=== PATIENT | female | born 1995 | race Caucasian/White ===

== ENCOUNTER 2021-06-03 08:55 | Inpatient (IN) | payer MEDICAID ==
[~2021-06-03] VITALS: Ht 167.6 cm; Wt 102.2 kg
[2021-06-03] MEDS ORDERED: NEWBORN KIT ONE (09:14)
[2021-06-03] MEDS ORDERED: SODIUM CITRATE/CITRIC ACID 15 ML UDC ONE (09:14)
[2021-06-03] MEDS ORDERED: METOCLOPRAMIDE 5 MG/ML, 2ML ONE (09:14)
[2021-06-03] MEDS ORDERED: FENTANYL PF 100 MCG/2ML ONE ×2 (09:14→10:26)
[2021-06-03] MEDS ORDERED: METOCLOPRAMIDE 5 MG/ML, 2ML IV ONE (09:30)
[2021-06-03] MEDS ORDERED: SODIUM CITRATE/CITRIC ACID 30 ML UDC PO ONE (09:30)
[2021-06-03] MEDS ORDERED: LACTATED RINGERS 1,000 ML IVBOLUS ONE (09:30)
[2021-06-03] MEDS ORDERED: PLEASE ENTER HEIGHT AND WEIGHT MC SCH (09:30)
[2021-06-03] MEDS ORDERED: LACTATED RINGERS 1,000 ML IV SCH (09:30)
[2021-06-03] MEDS ORDERED: TERBUTALINE 1 MG/ML, 1ML ONE (09:34)
[2021-06-03 09:35] LABS: BASOPHILS % (AUTO) 1 % (0-1); EOSINOPHILS % (AUTO) 0 % (1-7); LYMPHOCYTES % (AUTO) 16 % (22-44); MEAN CORPUSCULAR HEMOGLOBIN 31.4 pg (27.0-34.8); MEAN CORPUSCULAR HGB CONC 33.5 g/dL (32.4-35.8); MEAN PLATELET VOLUME 11.3 fL (7.4-10.4); MONOCYTES % (AUTO) 5 % (2-9); NEUTROPHILS % (AUTO) 78 % (42-75); PLATELET COUNT 179 x10^3/uL (130-400); RED BLOOD COUNT 4.12 x10^6/uL (3.82-5.3); RED CELL DISTRIBUTION WIDTH 13.3 % (9.6-15.2)
[2021-06-03 09:44] LABS: ALANINE AMINOTRANSFERASE 23 U/L (12-78); ALBUMIN 2.6 g/dL (3.4-5.0); ANION GAP 9 mmol/L (5-15); CALCIUM 9.4 mg/dL (8.5-10.1); CHLORIDE 110 mmol/L (98-107); CREATININE 0.66 mg/dL (0.55-1.02)
[2021-06-03 09:46] LABS: ALKALINE PHOSPHATASE 211 U/L (45-117); BILIRUBIN,TOTAL 0.4 mg/dL (0.2-1.0); TOTAL PROTEIN 6.6 g/dL (6.4-8.2)
[2021-06-03] MEDS ORDERED: BUPIVACAINE 0.25% ONE (10:33)
[2021-06-03] MEDS ORDERED: CEFAZOLIN 1,000 MG ONE ×2 (11:00)
[2021-06-03] MEDS ORDERED: OXYTOCIN 10 UNITS/ML, 1ML ONE ×3 (11:00)
[2021-06-03] MEDS ORDERED: ONDANSETRON 2MG/ML, 2ML ONE (11:07)
[2021-06-03] MEDS ORDERED: SODIUM CHLORIDE 0.9% PF 10ML ONE (11:08)
[2021-06-03] MEDS ORDERED: PHENYLEPHRINE 10 MG/ML ONE (11:08)
[2021-06-03] MEDS ORDERED: EPHEDRINE 50 MG/ML, 1ML ONE (11:08)
[2021-06-03] MEDS ORDERED: HYDROmorphone 1 MG/ML, 1ML INJ ONE (11:08)
[2021-06-03] MEDS ORDERED: TERBUTALINE 1 MG/ML, 1ML SQ ONE (11:30)
[2021-06-03] MEDS ORDERED: FENTANYL PF 100 MCG/2ML IVPush ONE (11:30)
[2021-06-03] MEDS ORDERED: KETOROLAC 30 MG/1 ML ONE (11:42)
[2021-06-03] MEDS ORDERED: OXYTOCIN 30U/ 0.9% NaCL 500ML 500 ML ONE (11:42)
[2021-06-03] MEDS: KETOROLAC 30 MG/1 ML IV SCH ×2 (11:45→18:00)
[2021-06-03 12:00] LABS: AMPHETAMINE SCREEN, URINE Negative (Negative); BARBITURATE SCREEN, URINE Negative (Negative); BENZODIAZEPINE SCREEN, URINE Negative (Negative); CANNABINOID SCREEN, URINE Positive (Negative); COCAINE SCREEN, URINE Negative (Negative); METHADONE SCREEN, URINE Negative (Negative); OPIATE SCREEN, URINE Negative (Negative); PROTEIN/CREATININE RATIO,URINE 391 (0-200); TOTAL PROTEIN,URINE RANDOM 79 mg/dL (0-12)
[2021-06-03] MEDS: OXYTOCIN 30U/ 0.9% NaCL 500ML 500 ML IV SCH (12:00)
[2021-06-03] MEDS ORDERED: MISOPROSTOL 200 MCG TABLET PR PRN (13:00)
[2021-06-03] MEDS ORDERED: METHYLERGONOVINE 0.2 MG/ML IM PRN (13:00)
[2021-06-03] MEDS ORDERED: morphine SULFATE 10 MG/ML, 1ML IVPush PRN (13:00)
[2021-06-03] MEDS: LACTATED RINGERS 1,000 ML IV SCH (13:00)
[2021-06-03] MEDS ORDERED: BISACODYL 10 MG SUPP PR PRN (13:00)
[2021-06-03] MEDS ORDERED: METOCLOPRAMIDE 5 MG/ML, 2ML IV PRN (13:00)
[2021-06-03] MEDS ORDERED: MEPERIDINE/PF 100 MG/ML IVPush PRN (13:00)
[2021-06-03] MEDS: OXYcodone IR 5MG TABLET PO PRN ×2 (13:36→18:04)
[2021-06-03 14:03] VITALS: BP 119/73
[2021-06-03 20:00] VITALS: BP 115/69
[2021-06-03] MEDS ORDERED: PRENATAL VIT/IRON/FA 1 EACH TABLET ONE (20:13)
[2021-06-03] MEDS: SIMETHICONE 80 MG CHEW TAB PO PRN (20:17)
[2021-06-03 20:33] LABS: BASOPHILS % (AUTO) 1 % (0-1); EOSINOPHILS % (AUTO) 0 % (1-7); LYMPHOCYTES % (AUTO) 13 % (22-44); MEAN CORPUSCULAR HEMOGLOBIN 31.6 pg (27.0-34.8); MEAN CORPUSCULAR HGB CONC 33.7 g/dL (32.4-35.8); MEAN PLATELET VOLUME 10.6 fL (7.4-10.4); MONOCYTES % (AUTO) 4 % (2-9); NEUTROPHILS % (AUTO) 83 % (42-75); PLATELET COUNT 136 x10^3/uL (130-400); RED BLOOD COUNT 3.27 x10^6/uL (3.82-5.3); RED CELL DISTRIBUTION WIDTH 13.4 % (9.6-15.2)
[2021-06-03 23:15] VITALS: BP 111/70
[2021-06-03] MEDS: ONDANSETRON 2MG/ML, 2ML IV PRN (23:19)
[2021-06-04] MEDS: OXYTOCIN 30U/ 0.9% NaCL 500ML 500 ML IV SCH ×3 (00:51→19:06)
[2021-06-04] MEDS: LACTATED RINGERS 1,000 ML IV SCH ×3 (00:51→19:06)
[2021-06-04] MEDS: KETOROLAC 30 MG/1 ML IV SCH ×4 (00:52→19:40)
[2021-06-04] MEDS: OXYcodone IR 5MG TABLET PO PRN ×5 (00:52→19:41)
[2021-06-04] MEDS: SIMETHICONE 80 MG CHEW TAB PO PRN ×2 (00:53→05:18)
[2021-06-04 01:00] VITALS: BP 112/72
[2021-06-04 04:10] VITALS: BP 107/67
[2021-06-04 08:30] VITALS: BP 133/73
[2021-06-04] MEDS: PRENATAL VIT/IRON/FA 1 EACH TABLET PO SCH (09:00)
[2021-06-04] MEDS: ONDANSETRON 2MG/ML, 2ML IV PRN ×2 (10:09→18:10)
[2021-06-04 19:30] VITALS: BP 130/63
[2021-06-04] MEDS: DOCUSATE 100 MG CAPSULE PO PRN (19:41)
[2021-06-04] MEDS ORDERED: ACETAMINOPHEN 325 MG TABLET PO PRN ×2 (20:30)
[2021-06-04] MEDS ORDERED: CALCIUM CARBONATE 500 MG TAB.CHEW PO PRN (20:30)
[2021-06-04] MEDS: MECLIZINE 25 MG TABLET PO PRN (21:32)
[2021-06-04] MEDS: ONDANSETRON ODT 4 MG PO PRN (22:03)
[2021-06-05] MEDS: OXYcodone IR 5MG TABLET PO PRN ×5 (01:51→18:05)
[2021-06-05] MEDS: KETOROLAC 30 MG/1 ML IV SCH ×2 (01:51→07:15)
[2021-06-05] MEDS: LACTATED RINGERS 1,000 ML IV SCH ×2 (05:27→15:00)
[2021-06-05] MEDS: OXYTOCIN 30U/ 0.9% NaCL 500ML 500 ML IV SCH ×2 (05:28→15:00)
[2021-06-05 07:30] VITALS: BP 132/85
[2021-06-05] MEDS ORDERED: IBUPROFEN 600 MG TABLET ONE (08:34)
[2021-06-05] MEDS: PRENATAL VIT/IRON/FA 1 EACH TABLET PO SCH (08:37)
[2021-06-05] MEDS: DOCUSATE 100 MG CAPSULE PO PRN (08:37)
[2021-06-05] MEDS: ONDANSETRON ODT 4 MG PO PRN ×2 (08:37→17:25)
[2021-06-05] MEDS: IBUPROFEN 600 MG TABLET PO PRN ×2 (08:37→17:25)
[2021-06-05] MEDS: MECLIZINE 25 MG TABLET PO PRN ×2 (09:18→17:26)
[2021-06-05 19:15] VITALS: BP 121/79
[2021-06-05] MEDS ORDERED: DIPH,PERTUSS(ACELL),TET VAC/PF NC IM-VACC ONE (19:30)
[2021-06-06] MEDS: IBUPROFEN 600 MG TABLET PO PRN ×4 (00:10→23:44)
[2021-06-06] MEDS: OXYcodone IR 5MG TABLET PO PRN ×5 (00:14→23:45)
[2021-06-06] MEDS: LACTATED RINGERS 1,000 ML IV SCH ×3 (01:00→21:00)
[2021-06-06] MEDS: OXYTOCIN 30U/ 0.9% NaCL 500ML 500 ML IV SCH ×3 (01:00→21:00)
[2021-06-06 07:20] VITALS: BP 113/73
[2021-06-06] MEDS: DOCUSATE 100 MG CAPSULE PO PRN ×2 (07:52→20:28)
[2021-06-06] MEDS: PRENATAL VIT/IRON/FA 1 EACH TABLET PO SCH (09:00)
[2021-06-06] MEDS: MECLIZINE 25 MG TABLET PO PRN ×2 (09:20→17:47)
[2021-06-06] MEDS: ONDANSETRON ODT 4 MG PO PRN ×2 (10:28→20:28)
[2021-06-06 19:05] VITALS: BP 142/82
[2021-06-06 23:45] VITALS: BP 126/72
[2021-06-07] MEDS: MECLIZINE 25 MG TABLET PO PRN ×2 (01:45→10:04)
[2021-06-07] MEDS: ONDANSETRON ODT 4 MG PO PRN ×2 (02:23→08:40)
[2021-06-07] MEDS: IBUPROFEN 600 MG TABLET PO PRN ×2 (05:46→11:44)
[2021-06-07] MEDS: OXYcodone IR 5MG TABLET PO PRN ×2 (05:47→11:44)
[2021-06-07] MEDS: LACTATED RINGERS 1,000 ML IV SCH (07:00)
[2021-06-07] MEDS: OXYTOCIN 30U/ 0.9% NaCL 500ML 500 ML IV SCH (07:00)
[2021-06-07 08:30] VITALS: BP 144/78
[2021-06-07] MEDS: PRENATAL VIT/IRON/FA 1 EACH TABLET PO SCH (08:39)
[2021-06-07] MEDS: DOCUSATE 100 MG CAPSULE PO PRN (08:39)
[2021-06-07] MEDS ORDERED: DOCU-131 PO (10:17)
[2021-06-07] MEDS ORDERED: IBUP-1223 PO (10:17)
[2021-06-07] MEDS ORDERED: OXYC1TAB14 PO (10:17)
== END 2021-06-07 13:20 | disposition home or self-care (01) | DRG 788 ==
LOC: LDOP 08:55 → LDIP 09:10 → 2NW 13:06
PROVIDERS: ADMIT Obstetrics & Gynecology; ATTEND Obstetrics & Gynecology
PROC: 10D00Z1 Extraction of Products of Conception, Low, Open Approach (ICD-10-PCS; principal; 2021-06-03)
PROC: 3E0234Z Introduction of Serum, Toxoid and Vaccine into Muscle, Percutaneous Approach (ICD-10-PCS; 2021-06-05)
DX: O69.81X0 Labor and delivery complicated by cord around neck, without compression, not applicable or unspecified (principal); Z37.0 Single live birth; Z3A.37 37 weeks gestation of pregnancy; Z20.822 Contact with and (suspected) exposure to COVID-19; Z23 Encounter for immunization
CPT/HCPCS: 36415; 80053; 80307; 82570; 84156; 84550; 85025; 86592; 86850; 86900; 87635; 90715; G0378; J0690; J1170; J1885; J2405; J3010; Q0162; J2270; J2370; J2590; J2765; J3105; J7120